=== PATIENT | male | born 1950 | race Caucasian/White ===

== ENCOUNTER 2020-11-21 07:39 | Inpatient (IN) | payer OTHER ==
[~2020-11-21] VITALS: Ht 175.3 cm; Wt 58.5 kg
[2020-11-21] VITALS (9 sets, daily range): BP systolic 99–128; BP diastolic 47–73
[~2020-11-21 07:39] MED LIST: ASPIRIN325 PO; HYDROCODONE-AP1 EAC6 PO; LEVAQUIN 750 M750 MG PO; PERCOCET 5-3251 EACH PO; PREDNISONE50 MG PO; VALIUM5 MG PO
[2020-11-21] MEDS ORDERED: IBUPROFEN200 M1 PO (07:49)
[2020-11-21 08:39] LABS: HEMATOCRIT 54.1 % (42.0-52.0); HEMOGLOBIN 18.1 gm/dL (14.0-18.0); MCH 30.6 pg (26.0-34.0); MCHC 33.5 g/dL (28.0-37.0); MCV 91.4 fL (80.0-100.0); MPV 10.2 fl. (7.2-11.1); NUCLEATED RBCS 0 /100WBC; PLATELET COUNT* 228 thou/uL (150-400); RBC 5.92 mil/uL (4.50-6.00); RDW-CV 15.1 % (10.5-14.5); WBC 24.5 thou/uL (4.0-11.0)
[2020-11-21 08:52] LABS: CREATININE 3.9 mg/dL (0.6-1.3); POTASSIUM 4.4 mmol/L (3.5-5.1)
[2020-11-21 09:02] LABS: MAGNESIUM 3.1 mg/dL (1.8-2.4); TOTAL BILIRUBIN 1.7 mg/dL (<0.1-1.0); TOTAL PROTEIN 7.8 g/dL (6.4-8.2)
[2020-11-21 09:33] LABS: ALBUMIN 3.3 g/dL (3.4-5.0)
[2020-11-21 09:43] LABS: ABSOLUTE LYMPHOCYTES 0.7 thou/uL (0.8-5.3); ABSOLUTE NEUTROPHILS 23.8 thou/uL (1.6-8.1); ATYPICAL LYMPHS 2 %; METAMYELOCYTES 1 %; PLATELET ESTIMATE ADEQUATE
[2020-11-21 11:03] LABS: BE -9.3 mmol/L (-2 to +3); PCO2 30.7 mmHg (35.0-45.0); pH 7.318 (7.340-7.450)
[2020-11-21 11:05] LABS: PO2 128.8 mmHg (75.0-100.0)
--- NOTE | 2020-11-21 14:29 | CON ---
[address] [address] CONSULTATION Name: CERVANTESDOUGIE Lakhwinder Room: [address] IN M.R.#: [id number] Admission: 11/21/20 Attend Phys: Enma Reynaga MD Discharge: Date of : 50 Report #: [id number] THIS REPORT FOR: cc: Brett Rothman Vincent R. DO Pervez, Adeel MD ~ DATE OF CONSULTATION: 11/21/2020 Consult has been requested by Dr. Reynaga. INDICATION FOR CONSULTATION: Acute hypoxemic respiratory failure secondary to COVID-19. HISTORY OF PRESENT ILLNESS: This is a 70-year-old gentleman. There is an extensive history of smoking in the past; however, he has not been diagnosed with a cardiac or respiratory disease in the past. I do not have his previous creatinine available, however, there is no known history of kidney disease as well. The patient now reports that he fell off a tree around 9 days ago and ever since then has had some pain in the right shoulder and right chest. He has been short of breath. He has been coughing. He says previously he did bring up some yellow sputum and still has rattling mucus in his throat. Subjectively, he felt febrile, however, there is no documentation of fever at home. He has had a clear nasal discharge. Currently, the patient is not maintaining O2 saturation on 15 liters oxygen via green high-flow nasal cannula. He was maintaining O2 saturation on a nonrebreather mask. We have placed him on a heated high-flow nasal cannula with 90% FiO2 and 25 liters flow. His O2 saturations have come up to the high 90s. He is also in AFib with RVR and is requiring 10 of diltiazem to control this. He is tachypneic. His respiratory rate is in the mid 30, so far he is compensated with this. He is not febrile at this time. His blood pressure is towards the lower end of the normal range. He says he has had some pain in the right leg as well ever since he had the injury. He does not report any abdominal complaints, in fact does not report any urinary complaints either. REVIEW OF SYSTEMS: For 12 points is negative except as mentioned above. PAST MEDICAL HISTORY: Sciatica, injury to a finger 10 years ago requiring blood transfusions. He says he had a difficult Galeana insertion about 10 years ago. SOCIAL HISTORY: There is an extensive history of smoking. The patient told me that he discontinued smoking 6 years ago. According to the records, he is an active smoker. No known history of heavy alcohol use [place] [address] CONSULTATION Name: DOUGIE CERVANTES Room: [address] IN .R.#: [id number] Admission: 11/21/20 Attend Phys: Enma Reynaga MD Discharge: Date of : 50 Report #: [id number] CURRENT MEDICATIONS: List in [facility] reviewed. HOME MEDICATIONS: Ibuprofen. ALLERGIES: CODEINE. FAMILY HISTORY: No pertinent family history known at this time. PHYSICAL EXAMINATION: GENERAL: He is alert, awake and oriented. VITAL SIGNS: He has a pulse of around 90 with the diltiazem at 10, blood pressure is 120/65. His respiratory rate was 35. He is saturating 98% on 25 liters flow, 90% FiO2. He is afebrile with a temperature of 36.2. HEENT: Head is normocephalic and atraumatic. NECK: Does not show raised JVP, asymmetry, mass or lymph nodes. CHEST: Symmetrical expansion on inspection and palpation. On auscultation, breath sounds are bilaterally equal, but decreased high respiratory rate is noted. There is some rattling sounds from the upper airways heard. HEART: Irregular. There is no murmur. ABDOMEN: Soft and nontender. EXTREMITIES: Lower extremities show no edema and no calf tenderness. SKIN: Dry and intact. NEUROLOGIC: Moves all extremities bilaterally equally and spontaneously with no focal deficit identified. LABORATORY DATA: The patient's chest x-ray is reviewed. There are lobar infiltrates in the right middle lobe extending into the lower lobe. There are infiltrates noted in the left lower lobe as well. This is superimposed on reticular infiltrates bilaterally in all lobes. There is a possibility of a tiny pneumothorax on the right side. Shoulder x-ray does not show fracture. Lab work is in [facility] and this is reviewed. His bandemia at 11%. He has leukocytosis. His hemoglobin is high. He is in acute renal failure, creatinine is 3.9. He has a significant metabolic acidosis which, however, is at least partially compensated. ASSESSMENT AND PLAN: 1. Acute hypoxemic respiratory failure secondary to COVID-19. For now, we will keep him on a heated high-flow nasal cannula. He, despite being tachypneic, appears to be stable on this for now. I am avoiding BiPAP considering possibility of a small pneumothorax on the right side; however, it is possible that he needs a BiPAP. If he worsens, then endotracheal intubation also remains a possibility. The patient does appear to be critically ill. We will watch him very closely in the ICU. [address] [address] CONSULTATION Name: DOUGIE CERVANTES Room: [address] IN [facility]#: [id number] Admission: 11/21/20 Attend Phys: Enma Reynaga MD Discharge: Date of : 50 Report #: [id number] 2. COVID-19. We will continue dexamethasone, I ordered 10 mg b.i.d. both because of severe hypoxemia as well as the fact that I feel that there is a component of chronic obstructive pulmonary disease. We will also go ahead and give him Actemra. He is ordered 1 unit of convalescent plasma, I will be inclined to give another unit later. There are both risks and benefits of giving him remdesivir considering renal failure. It is already ordered. For now, I continued. We will watch renal function and LFTs closely. 3. Pulmonary infiltrates/leukocytosis/bandemia. He has 11% bands. He is hypoxic. His WBCs are up. Therefore, I would be aggressive initially in treating her with antibiotics. Linezolid, cefepime as well as Zithromax are ordered. We will do cultures and serologies. We will cut back antibiotics later if his respiratory status improves. 4. Acute renal failure. We will cautiously go ahead and request a Galeana to be placed. We will do a renal ultrasound. We will continue with IV fluids while watching respiratory status closely. Followup labs are ordered. His baseline creatinine is unknown. 5. Chronic obstructive pulmonary disease exacerbation/polycythemia. His hemoglobin is elevated to 18.1, etiology of this is not established at this time, the most likely reason would be that he has underlying chronic obstructive pulmonary disease previously undiagnosed. 6. Atrial fibrillation with rapid ventricular response. Rapid ventricular response is now under control with diltiazem. Cardiology Service is on the case. May benefit from an echocardiogram. Also, agree with IV heparin. 7. Right leg pains/evaluation for thromboembolic phenomena. The leg pain started when he had injury. For the sake of completion, we will go ahead and do venous Dopplers; however, he is already ordered IV heparin and overall, my suspicion of thromboembolism is not high. 8. Gastrointestinal prophylaxis, on Protonix. 9. Clostridium difficile prophylaxis, Lactinex. 10. Hyperglycemia, insulin sliding scale. The patient is critically ill at this time. Total time spent providing critical care to this patient today exceeds 50 minutes. <ELECTRONICALLY SIGNED> By: Ion Black MD 11/21/20 1429 1214 [id number] Black MD /nt
--- NOTE | 2020-11-21 14:47 | EKG ---
[place] [address] ELECTROCARDIOGRAM REPORT Name: DOUGIE CERVANTES Room: [address] ADM IN .R.#: [id number] Admission: 11/21/20 Attend Phys: Enma Reynaga, Discharge: Date of : 50 Date of Service: 11/21/20 0740 Report #: [id number] THIS REPORT FOR: //name// [facility] ED Test Date: 2020-11-21 Test Time: 07:40:05 Pat Name: DOUGIE CERVANTES Department: Room: [facility] Gender: M Block Tester: CD : 1950 Requested By: Robert Guerrier Order Number: [id number] MD: Michael Meredith Measurements Intervals [place] Rate: 175 P: WI: QRS: 39 QRSD: 97 T: 69 QT: 288 QTc: 492 Interpretive Statements Atrial fibrillation with rapid V-rate Left ventricular hypertrophy Baseline wander in lead(s) III Compared to ECG 04/30/2015 15:43:02 Sinus rhythm no longer present Electronically Signed On 11-21-2020 14:47:02 CDT by Michael Meredith [email or web address] <ELECTRONICALLY SIGNED> By: Michael Meredith MD, FAC 11/21/20 1447 9 Michael Meredith MD, FAC /EPI
[2020-11-21 14:58] LABS: APTT 29.7 Seconds (25.0-31.3); INR 1.2; PROTIME 12.7 Seconds (9.20-11.50)
[2020-11-21 17:44] LABS: CALCIUM 7.9 mg/dL (8.5-10.1); MAGNESIUM 2.3 mg/dL (1.8-2.4); POTASSIUM 4.1 mmol/L (3.5-5.1)
[2020-11-21 17:46] LABS: CREATININE 2.8 mg/dL (0.6-1.3)
--- NOTE | 2020-11-21 21:05 | NUR ---
RECIEVED PATIENT FROM ED 1130
[2020-11-22] VITALS (23 sets, daily range): BP systolic 93–160; BP diastolic 61–83
[2020-11-22 03:25] LABS: ABSOLUTE LYMPHOCYTES 0.3 thou/uL (0.8-5.3); ABSOLUTE MONOCYTES 0.3 thou/uL (0.0-1.2); ABSOLUTE NEUTROPHILS 15.7 thou/uL (1.6-8.1); HEMATOCRIT 40.5 % (42.0-52.0); LYMPHOCYTES 1.6 %; MCH 30.7 pg (26.0-34.0); MCHC 33.2 g/dL (28.0-37.0); MCV 92.5 fL (80.0-100.0); MONOCYTES 2.1 %; NUCLEATED RBCS 0 /100WBC; PLATELET COUNT* 183 thou/uL (150-400); POLYS 96.3 %; RBC 4.38 mil/uL (4.50-6.00); RDW-CV 14.9 % (10.5-14.5); WBC 16.3 thou/uL (4.0-11.0)
[2020-11-22 03:29] LABS: HEMOGLOBIN 13.5 gm/dL (14.0-18.0)
[2020-11-22 03:47] LABS: ALBUMIN 1.6 g/dL (3.4-5.0); CALCIUM 7.7 mg/dL (8.5-10.1); CREATININE 2.2 mg/dL (0.6-1.3); TOTAL BILIRUBIN 0.8 mg/dL (<0.1-1.0)
--- NOTE | 2020-11-22 13:28 | 2DMMODE ---
[place] [address] 2 D/M-MODE ECHOCARDIOGRAM Name: DOUGIE CERVANTES Room: [address] IN .R.#: [id number] Admission: 11/21/20 Attend Phys: Enma Reynaga, Discharge: Date of : 50 Date of Service: 11/22/20 1328 Report #: [id number] THIS REPORT FOR: cc: Brett Rothman,Brett Sutton,Richie Giron MD [facility] ~ APPROVED REPORT Study performed: 11/22/2020 09:45:17 EXAM: Comprehensive 2D, Doppler, and color-flow Echocardiogram Patient Location: In-Patient Room #: 003 Status: routine BSA: 1.78 HR: 96 bpm BP: 119/66 mmHg Rhythm: Atrial Fibrillation Other Information Study Quality: Good Indications Atrial Fibrillation Dyspnea 2D Dimensions IVSd: 11.32 (7-11mm) LVOT Diam: 20.04 (18-24mm) LVDd: 49.71 mm PWd: 9.22 (7-11mm) Ascending Ao: 31.21 (22-36mm) LVDs: 31.47 (25-40mm) Aortic Root: 30.53 mm Volumes Left Atrial Volume (Systole) LA ESV Index: 44.20 mL/m2 Aortic Valve AoV Peak Cristopher.: 1.01 m/s AO Peak Gr.: 4.08 mmHg LVOT Max P.49 mmHg AO Mean Gr.: 2.42 mmHg LVOT Mean P.26 mmHg LVOT Max V: 0.79 m/s AO V2 VTI: 15.09 cm LVOT Mean V: 0.52 m/s ONIEL (VTI): 2.53 cm2 LVOT V1 VTI: 12.10 [place] [address] 2 D/M-MODE ECHOCARDIOGRAM Name: DOUGIE CERVANTES Room: [address] IN [facility].#: [id number] Admission: 11/21/20 Attend Phys: Enma Reynaga, Discharge: Date of : 50 Date of Service: 11/22/20 1328 Report #: [id number] TDI Medial E' Cristopher.: 0.15 m/s Lateral E' Cristopher.: 0.13 m/s Pulmonary Valve PV Peak Cristopher.: 0.78 m/s PV Peak Gr.: 2.45 mmHg Tricuspid Valve RAP Estimate: 5.00 mmHg TR Peak Gr.: 31.61 mmHg RVSP: 36.00 mmHg PA Pressure: 36.00 mmHg Left Ventricle The left ventricle is normal size. There is normal LV segmental wall motion. There is normal left ventricular wall thickness. Left ventricular systolic function is normal. LVEF is 50-55%. This study is not technically sufficient to allow evaluation of the LV diastolic function due to atrial fibrillation. Right Ventricle The right ventricle is normal size. The right ventricular systolic function is normal. Atria Left atrium is moderately dilated. The right atrium size is normal. Aortic Valve Mild aortic valve sclerosis. No aortic regurgitation is present. There is no aortic valvular stenosis. Mitral Valve The mitral valve is normal in structure. Mild mitral regurgitation. No evidence of mitral valve stenosis. Tricuspid Valve The tricuspid valve is normal in structure. Mild tricuspid regurgitation. Mild pulmonary hypertension. Pulmonic Valve The pulmonary valve is normal in structure. There is no pulmonic valvular regurgitation. Great Vessels The aortic root is normal in size. IVC is [place] [address] 2 D/M-MODE ECHOCARDIOGRAM Name: DOUGIE CERVANTES Room: [address] IN [facility]#: [id number] Admission: 11/21/20 Attend Phys: Enma Reynaga, Discharge: Date of : 50 Date of Service: 11/22/20 1328 Report #: [id number] collapses >50% with inspiration. Pericardium There is no pericardial effusion. <Conclusion> The left ventricle is normal size. There is normal left ventricular wall thickness. Left ventricular systolic function is normal. LVEF is 50-55%. There is normal LV segmental wall motion. Left atrium is moderately dilated. Mild tricuspid regurgitation. Mild pulmonary hypertension. IVC is normal in size and collapses >50% with inspiration. <ELECTRONICALLY SIGNED> By: Richie Calderón MD, FACC 11/22/201327 27 27 Richie Calderón MD, FACC /INF
--- NOTE | 2020-11-22 16:38 | NUR ---
ICU Rounds: Patient currently in COVID isolation and on 20L Heated High Flow at 60%. [place] with [place] 2 grandchildren. 2 steps in enter home or none if going through back door. Patient was independent prior to admit and was able to drive. No hx of DME, O2, bipap/cpap, BHS services, dialysis, infusion therapy, SNF/rehab or HH. PCP on facesheet is listed as Maulik Torres, however states that Brian is her doctor and the patient has not ever been seen by him. Facesheet lists dtr ([facility]urora) as DPOA but states that she doesn't have DPOA but rather she has a living will which should include her being able to make decisions for her. Advised that when she no longer has symptoms of COVID to bring the paperwork up so that it can be placed in the patients chart. verbalized understanding. She also stated that she has no questions at this time. CM to continue to follow
--- NOTE | 2020-11-22 20:15 | NUR ---
I ASSUMED CARE OF THE PATIENT AT 0700. HE IS ALERT AND ORIENTED X4 AND IS UP WITH ASSIST OF 1. BED IS IN THE LOW LOCKED POSITION AND CALL LIGHT IS IN REACH. PATIENT NEEDS ARE MET DURING HOURLY ROUNDING. HE IS UP IN THE CHAIR MOST OF THE DAY, BUT DESATED DURING TRANSITION TO THE CHAIR. I HAVE MENTIONED THE PNEUMOTHORAX TO RT TO AVOID BIPAP IF POSSIBLE. HIS OUTPUT IS SUFFICIENT. CARDIZEM DRIP IS CONTINUOUS. BLOOD GLUCOSE IS MONITORED. ISOLATION IS MAINTAINED. WILL CONTINUE TO MONITOR.
--- NOTE | 2020-11-22 20:27 | NUR ---
ASSESSMENTS WERE THE SAME AT 1200 AND 1600. CHANGES IN NOTES.
[2020-11-22 23:06] LABS: MYCOPLASMA PNEUMONIA IgG 210 U/mL (0-99)
[2020-11-23] VITALS (14 sets, daily range): BP systolic 116–172; BP diastolic 68–100
--- NOTE | 2020-11-23 00:38 | NUR ---
NO CHANGES IN ASSESSMENT FROM 1999.
--- NOTE | 2020-11-23 01:17 | NUR ---
ASSUMED CARE OF PT AT 1900. PT IS ALERT AND ORIENTED. VSS. PERRLA. NO COMPLAINTS OF PAIN. PT IS IN A FIB ON THE TELEMETRY. PT HAS A HERNANDEZ IN PLACE. PT IS ON HEATED HIGH FLOW CANNULA. PT IS SLEEPING COMFORTABLY IN BED. RESPIRATIONS ARE EVEN AND NONLABORED. WILL CONTINUE TO MONITOR PT.
[2020-11-23 02:06] LABS: GLYCOHEMOGLOBIN (HGB A1C) 6.2 % (4.8-5.6)
[2020-11-23 03:46] LABS: ABSOLUTE LYMPHOCYTES 0.3 thou/uL (0.8-5.3); ABSOLUTE MONOCYTES 0.5 thou/uL (0.0-1.2); ABSOLUTE NEUTROPHILS 12.8 thou/uL (1.6-8.1); BASOPHILS 0.1 %; HEMATOCRIT 40.3 % (42.0-52.0); HEMOGLOBIN 13.3 gm/dL (14.0-18.0); LYMPHOCYTES 2.4 %; MCH 30.2 pg (26.0-34.0); MCV 91.4 fL (80.0-100.0); MONOCYTES 3.3 %; MPV 9.8 fl. (7.2-11.1); NUCLEATED RBCS 0 /100WBC; PLATELET COUNT* 188 thou/uL (150-400); POLYS 94.2 %; RBC 4.41 mil/uL (4.50-6.00); RDW-CV 14.8 % (10.5-14.5); WBC 13.5 thou/uL (4.0-11.0)
[2020-11-23 04:05] LABS: ALBUMIN 1.8 g/dL (3.4-5.0); CALCIUM 7.8 mg/dL (8.5-10.1); MAGNESIUM 1.3 mg/dL (1.8-2.4); PHOSPHORUS* 3.3 mg/dL (2.5-4.9); POTASSIUM 4.1 mmol/L (3.5-5.1); TOTAL BILIRUBIN 0.6 mg/dL (<0.1-1.0); TOTAL PROTEIN 5.7 g/dL (6.4-8.2)
[2020-11-23 04:11] LABS: CREATININE 1.2 mg/dL (0.6-1.3)
--- NOTE | 2020-11-23 10:06 | NUR ---
ICU Rounds: Patient remains on 60L/85% FiO2 Hi-flow. Continued abx, remdesevir and steroids. Bipap PRN. Daily CXR scheduled. Per surgery, no plans for chest tube at this time. Nursing updated family on plan of care. Patient to stay through the weekend. CM to continue to follow
[2020-11-23 15:52] LABS: CALCIUM 8.3 mg/dL (8.5-10.1); CREATININE 1.3 mg/dL (0.6-1.3); MAGNESIUM 3.6 mg/dL (1.8-2.4); POTASSIUM 4.1 mmol/L (3.5-5.1)
[2020-11-23 23:06] LABS: MYCOPLASMA PNEUMONIA IgM <770 U/mL (0-769)
[2020-11-24] VITALS (8 sets, daily range): BP systolic 111–141; BP diastolic 56–85
[2020-11-24 04:31] LABS: HEMATOCRIT 42.7 % (42.0-52.0); HEMOGLOBIN 14.1 gm/dL (14.0-18.0); MCH 30.6 pg (26.0-34.0); MCHC 33.1 g/dL (28.0-37.0); MCV 92.5 fL (80.0-100.0); NUCLEATED RBCS 0 /100WBC; PLATELET COUNT* 194 thou/uL (150-400); RBC 4.62 mil/uL (4.50-6.00); RDW-CV 14.8 % (10.5-14.5); WBC 11.1 thou/uL (4.0-11.0)
[2020-11-24 04:44] LABS: ALBUMIN 1.8 g/dL (3.4-5.0); CALCIUM 7.8 mg/dL (8.5-10.1); CREATININE 0.9 mg/dL (0.6-1.3); POTASSIUM 4.4 mmol/L (3.5-5.1); TOTAL PROTEIN 5.7 g/dL (6.4-8.2)
[2020-11-24 06:28] LABS: ABSOLUTE LYMPHOCYTES 0.7 thou/uL (0.8-5.3); ABSOLUTE MONOCYTES 0.4 thou/uL (0.0-1.2)
[2020-11-24 06:31] LABS: PLATELET ESTIMATE ADEQUATE
[2020-11-25 00:16] VITALS: BP 105/60
--- NOTE | 2020-11-25 00:31 | NUR ---
AFTER PT HAD XOPENEX TREATMENT HR WAS VERY TACHY IN 120-145 RANGE. IT WAS NOT CONTROLLED, PT STATED HE JUST FELT SHAKY FROM TREATMENT AND HAD NO CHEST PAIN, SOA OR FEELING DIZZY. METOPROLOL WAS GIVEN IV PUSH WITH GOOD RESULTS, PT HR WAS SOON 90-100s
--- NOTE | 2020-11-25 05:38 | NUR ---
PT AO X4 LYING IN CHAIR RECLINED BACK WITH FEET ELEVATED AT TIME OF ASSESSMENT, PT DENIES PAIN AT THIS TIME, HE COMPLAINS OF BEING COLD AND WARM BLANKETS WERE PROVIDED AT THIS TIME. PT REPORTS COUGH WITH BROWN PHLEGM PRODUCTION AT TIMES, HE DENIES SOA AND IS ON 10L HFNC AND IS IN NO ACUTE DISTRESS. PT VSS, TELE IS AFIB, HE IS ON ELIQUIS. PT HAS HERNANDEZ FOR ICU ACCURATE I/O AND HAS CLEAR ALTAGRACIA URINE IN ADEQUATE AMOUNTS. HE HOPING TO HAVE THIS REMOVED AND REQUESTING TO SHOWER TODAY. PT HAD ONE EPISODE OF TACHYCARDIA AFTER XOPENEX TREATMENT AND WAS GIVEN IV METOPROLOL THAT BROUGHT HR DOWN FROM 120-140s TO THE 90-100 RANGE. PT DENIED AND HEART FLUTTERING,PAIN, OR SOA. AT ONE POINT PTs SAT DID DROP BELOW 88% AND I WENT TO BEDSIDE TO EVALUATE, PT WAS HELPED TO BED AND PUT IN FOWLERS POSITION AND THIS HELPED SATS TO ACHIEVE 100% AT ONE POINT. MEDS PER EMAR WITHOUT PROBLEM, CALL LIGHT IN REACH FOR PT SAFETY.
[2020-11-25 08:27] VITALS: BP 136/85
[2020-11-25 08:29] LABS: ABSOLUTE LYMPHOCYTES 0.4 thou/uL (0.8-5.3); ABSOLUTE MONOCYTES 0.5 thou/uL (0.0-1.2); ABSOLUTE NEUTROPHILS 10.4 thou/uL (1.6-8.1); BASOPHILS 0.1 %; HEMATOCRIT 43.5 % (42.0-52.0); HEMOGLOBIN 14.3 gm/dL (14.0-18.0); LYMPHOCYTES 3.4 %; MCH 30.3 pg (26.0-34.0); MPV 9.6 fl. (7.2-11.1); NUCLEATED RBCS 0 /100WBC; PLATELET COUNT* 200 thou/uL (150-400); POLYS 92.5 %; RBC 4.73 mil/uL (4.50-6.00); RDW-CV 14.4 % (10.5-14.5); WBC 11.2 thou/uL (4.0-11.0)
[2020-11-25 08:47] LABS: CALCIUM 7.7 mg/dL (8.5-10.1); MAGNESIUM 1.4 mg/dL (1.8-2.4); PHOSPHORUS* 3.4 mg/dL (2.5-4.9); POTASSIUM 4.6 mmol/L (3.5-5.1); TOTAL BILIRUBIN 1.2 mg/dL (<0.1-1.0); TOTAL PROTEIN 5.8 g/dL (6.4-8.2)
[2020-11-25 11:50] VITALS: BP 122/68
[2020-11-25 16:25] VITALS: BP 125/83
--- NOTE | 2020-11-25 17:47 | NUR ---
Pt remains in Afib. Rate elevated with activity and with resp txs. Meds adjusted per Dr. Calderón. Received one dose metoprolol IV late this am for HR 120s-140s. O2 @ 15L per [facility] this am, titrated to 10L this shift. SaO2 low to mid 90s. Lissett dc'd at 1630 per pt request. Pt has had 4 soft BMs today. Poor appetite today. Reports he feels "pretty good." Up in chair this morning and afternoon. VSS. Will continue to monitor.
[2020-11-26] VITALS: BP 123/77
[2020-11-26 04:00] VITALS: BP 134/76
[2020-11-26 04:35] LABS: ABSOLUTE LYMPHOCYTES 0.4 thou/uL (0.8-5.3); ABSOLUTE MONOCYTES 0.3 thou/uL (0.0-1.2); ABSOLUTE NEUTROPHILS 10.8 thou/uL (1.6-8.1); BASOPHILS 0.1 %; HEMATOCRIT 43.6 % (42.0-52.0); HEMOGLOBIN 14.2 gm/dL (14.0-18.0); LYMPHOCYTES 3.5 %; MCHC 32.5 g/dL (28.0-37.0); MCV 92.4 fL (80.0-100.0); MPV 9.9 fl. (7.2-11.1); NUCLEATED RBCS 0 /100WBC; PLATELET COUNT* 198 thou/uL (150-400); POLYS 93.4 %; RBC 4.72 mil/uL (4.50-6.00); RDW-CV 14.6 % (10.5-14.5); WBC 11.6 thou/uL (4.0-11.0)
[2020-11-26 04:48] LABS: CALCIUM 7.6 mg/dL (8.5-10.1); CREATININE 0.9 mg/dL (0.6-1.3); MAGNESIUM 1.6 mg/dL (1.8-2.4); PHOSPHORUS* 3.3 mg/dL (2.5-4.9); POTASSIUM 4.6 mmol/L (3.5-5.1); TOTAL BILIRUBIN 1.1 mg/dL (<0.1-1.0); TOTAL PROTEIN 5.1 g/dL (6.4-8.2)
--- NOTE | 2020-11-26 06:08 | NUR ---
PT AO X4 AND VERY FATIGUED THIS PM, HE DID NOT ENGAGE IN CONVERSATION THIS PM AND WAS SLEEPING OFF AND ON. VSS, I ENCOURAGED PT TO EAT MEALS WITH PROTEIN FOR OPTIMUM ENERGY AND HEALING. HE STATED HE ONLY ATE ICE CREAM YESTERDAY. A MENU WAS PROVIDED FOR HIM TO CALL HIS MEALS TO KITCHEN IN HOPES HE WOULD CHOOSE ITEMS HE WOULD EAT. CALL LIGHT IN REACH FOR PT SAFETY
[2020-11-26 08:46] VITALS: BP 143/78
--- NOTE | 2020-11-26 14:23 | NUR ---
Covid positive. Anticipate dc in a few days. On 10L, continue to wean. Pneumothorax.
--- NOTE | 2020-11-26 16:09 | NUR ---
BRANNON Dixon who has had pt prior to this date alerted this RN pt is "different" than prior. Stated he seems mentally "off," that he appears more confused today aand not as mentally sharp. Todays shift is this RNs first encounter with pt. This RN reassessed pt. No acute changes since beginning of shift assessment. Dr Rodriguez notified of this. Stated Dr Black verbalized to him that pt appears better today. No new orders at this time.
[2020-11-26 16:19] VITALS: BP 113/64
--- NOTE | 2020-11-26 17:59 | NUR ---
NO ACUTE EVENTS THIS SHIFT. PT IS A&OX4, HOWEVER FORGETFUL. 10L VIA HFNC. A FIB ON TELE, RATE CONTROLLED. PT GETS UP SBA TO BSC. PLAN WEAN O2 ABLE.
[2020-11-26 20:15] VITALS: BP 126/64
[2020-11-26 23:32] VITALS: BP 120/77
[2020-11-27 03:26] VITALS: BP 102/63
[2020-11-27 04:25] LABS: HEMATOCRIT 46.3 % (42.0-52.0); HEMOGLOBIN 15.3 gm/dL (14.0-18.0); MCH 30.4 pg (26.0-34.0); MCV 92.2 fL (80.0-100.0); MPV 9.9 fl. (7.2-11.1); NUCLEATED RBCS 0 /100WBC; RBC 5.03 mil/uL (4.50-6.00); RDW-CV 14.2 % (10.5-14.5); WBC 12.5 thou/uL (4.0-11.0)
[2020-11-27 04:29] LABS: ALBUMIN 3.1 g/dL (3.4-5.0); CALCIUM 8.4 mg/dL (8.5-10.1); CREATININE 1.1 mg/dL (0.6-1.3); MAGNESIUM 1.9 mg/dL (1.8-2.4); POTASSIUM 4.7 mmol/L (3.5-5.1); TOTAL BILIRUBIN 1.8 mg/dL (<0.1-1.0); TOTAL PROTEIN 6.4 g/dL (6.4-8.2)
[2020-11-27 04:39] LABS: PLATELET COUNT* 282 thou/uL (150-400)
--- NOTE | 2020-11-27 05:24 | NUR ---
PT AO X4 BUT SOMEWHAT DISTRACTED TODAY. PT IS SITTING IN BED PLAYING WITH CELLPHONE AND DOES NOT ENGAGE IN CONVERSATION. HE HAD SEVERAL BEHAVIOUS THAT WERE UNLIKE HIMSELF AND HE IS NOT MAKING EYE CONTACT. HE ANSWERS ALL ORIENTATION QUESTIONS APPROPRIATELY BUT DOES HAVE A VISIBLE TREMOR IN HANDS. PT HAS NOT BEEN EATING AND ONLY DRINKS PEPSI THROUGHOUT THE DAY. URINE IS YELLOW AND CLEAR, PT HAVING SOME LOOSE STOOLS THAT ARE VERY DARK BROWN. LUNGS CTA/DIM WITH NON PRODUCTIVE COUGH. TELEMETRY SHOWS AFIB RATE CONTROLLED AND PT IS ON 10L HFNC. PT WAS NOT SLEEPING AND GOT UP AND AMBULATED TO THE TOILET TO VOID AND WAS VISIBLY OUT OF BREATH AND WALKED BACK TO BED. I SPOKE WITH DAUGHTER THINKING MAYBE PT HAD UNDER REPORTED ETOH USE AND SHE STATES THAT HE DOES DRINK BOURBON IN HIS PEPSI EVERYDAY BUT THE AMOUNT IS NOT KNOWN. SHE WAS GOING TO COORDINATE WITH HER FAMILY TO BRING IN MEALS THAT HE WOULD EAT TO HELP WITH HIS NUTRITION. PT BED ALARM ON AND CALL LIGHT IN REACH FOR PT SAFETY
[2020-11-27 07:02] LABS: ABSOLUTE LYMPHOCYTES 0.9 thou/uL (0.8-5.3); ABSOLUTE MONOCYTES 0.3 thou/uL (0.0-1.2); ABSOLUTE NEUTROPHILS 11.4 thou/uL (1.6-8.1); PLATELET ESTIMATE ADEQUATE
[2020-11-27 08:20] VITALS: BP 140/92
--- NOTE | 2020-11-27 12:24 | NUR ---
Covid positive. Down to 8L. Confused now. Pt may need ARU vs SNF [place] pending mentation. Therapies to evaluate.
[2020-11-27 13:33] VITALS: BP 124/66
--- NOTE | 2020-11-27 14:11 | NUR ---
Nutrition: Spoke with pt's RN today. Pt has poor appetite. He did drink an Ensure with lunch. RD will order Glucerna shake for all lunches to encourage better po intake. Pt with COVID. Wt: 132#. Alb 3.1, prealb 28, BG 170-111. CHO controlled diet is ordered. Inadequate oral intake R/T not feeling well AEB RN report. Glucerna shakes daily to encourage better po intake. Mild risk.
--- NOTE | 2020-11-27 17:51 | NUR ---
Pt fidgety for much of shift until around 1530. Pt had been up in recliner since before shift began, and had been fumbling with his flip phone, adjusting his blankets and linen underneath him, and other repetitive behaviors. Pt answered most questions accurately, but was vague with open-ended questions. HR 100s-130s, but O2 sats mid to upper 90s even with activity. Medications were adjusted per cardiology, and HR has been controlled snice late this afternoon. Pt has been in bed since this afternoon and sleeping, though awakened for CT scan, medications, supper, etc. 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 Pt has had poor intake thus far, but did have an Ensure and ice cream milkshake for lunch. For supper, pt's dtr dropped off a ham & cheese sandwich from , and pt gleefully ate it. Pt currently asleep. VSS. Will continue to monitor.
[2020-11-27 20:04] VITALS: BP 113/62
[2020-11-27 23:46] VITALS: BP 105/66
--- NOTE | 2020-11-28 03:44 | NUR ---
ASSUMED CARE OF PT AT 1900. PT IS ALERT AND ORIENTED. VSS. PERRLA. NO COMPLAINTS OF PAIN. PT IS ON 4 LITERS O2. PT IS IN A FIB ON THE TELEMETRY. PT IS RESTING COMFORTABLY IN BED. RESPIRATIONS ARE EVEN AND NONLABORED. WILL CONTINUE TO MONITOR PT.
[2020-11-28 04:00] VITALS: BP 114/69
[2020-11-28 05:19] LABS: ABSOLUTE LYMPHOCYTES 0.4 thou/uL (0.8-5.3); ABSOLUTE MONOCYTES 0.3 thou/uL (0.0-1.2); ABSOLUTE NEUTROPHILS 9.4 thou/uL (1.6-8.1); BASOPHILS 0.3 %; HEMATOCRIT 45.9 % (42.0-52.0); HEMOGLOBIN 15.1 gm/dL (14.0-18.0); LYMPHOCYTES 4.4 %; MCH 30.3 pg (26.0-34.0); MCHC 32.9 g/dL (28.0-37.0); MCV 92.1 fL (80.0-100.0); MONOCYTES 2.6 %; MPV 9.5 fl. (7.2-11.1); NUCLEATED RBCS 0 /100WBC; POLYS 92.7 %; RBC 4.98 mil/uL (4.50-6.00); RDW-CV 14.7 % (10.5-14.5); WBC 10.1 thou/uL (4.0-11.0)
[2020-11-28 05:20] LABS: PLATELET COUNT* 207 thou/uL (150-400)
[2020-11-28 05:39] LABS: ALBUMIN 2.7 g/dL (3.4-5.0); CALCIUM 8.3 mg/dL (8.5-10.1); CREATININE 1.1 mg/dL (0.6-1.3); POTASSIUM 4.7 mmol/L (3.5-5.1); TOTAL BILIRUBIN 1.5 mg/dL (<0.1-1.0); TOTAL PROTEIN 5.8 g/dL (6.4-8.2)
[2020-11-28 08:44] VITALS: BP 91/51
[2020-11-28 12:00] VITALS: BP 125/72
--- NOTE | 2020-11-28 14:35 | NUR ---
Covid positive. Down to 4L, continue to wean. Ex ox at dc
[2020-11-28 16:00] VITALS: BP 125/65
--- NOTE | 2020-11-28 18:05 | NUR ---
PATIENT ALERT ORIENTED X4 , VERY CALM AND COOPERATIVE , CONTINUE ON SUPPLEMEMT OXYGEN 2L/NC . PATIENT WITH NO COMPLAIN OF PAIN OR DISCOMFORT . HAD X2 BOWEL MOVEMENT . NO ISSUE VOICED 2L/
--- NOTE | 2020-11-28 23:10 | NUR ---
PATIENT REFUSED TO TAKE INSULIN TONIGHT D/T HIM NOT EATING DINNER. HE JUST DOESN'T HAVE MUCH OF AN APPEPITE TONIGHT. PATIENT RESTING QUIETLY IN ROOM. NURSING TO CONTINUE MONITORING.
[2020-11-29 00:35] VITALS: BP 117/72
[2020-11-29 03:09] VITALS: BP 117/62
[2020-11-29 04:16] LABS: ABSOLUTE LYMPHOCYTES 0.5 thou/uL (0.8-5.3); ABSOLUTE MONOCYTES 0.4 thou/uL (0.0-1.2); ABSOLUTE NEUTROPHILS 7.2 thou/uL (1.6-8.1); BASOPHILS 0.1 %; HEMATOCRIT 45.4 % (42.0-52.0); HEMOGLOBIN 15.2 gm/dL (14.0-18.0); LYMPHOCYTES 6.7 %; MCH 30.9 pg (26.0-34.0); MCHC 33.5 g/dL (28.0-37.0); MCV 92.2 fL (80.0-100.0); MONOCYTES 4.6 %; MPV 9.9 fl. (7.2-11.1); NUCLEATED RBCS 0 /100WBC; PLATELET COUNT* 171 thou/uL (150-400); POLYS 88.6 %; RBC 4.92 mil/uL (4.50-6.00); RDW-CV 14.1 % (10.5-14.5); WBC 8.1 thou/uL (4.0-11.0)
[2020-11-29 04:40] LABS: ALBUMIN 2.5 g/dL (3.4-5.0); CALCIUM 8.1 mg/dL (8.5-10.1); CREATININE 0.8 mg/dL (0.6-1.3); MAGNESIUM 1.8 mg/dL (1.8-2.4); POTASSIUM 4.4 mmol/L (3.5-5.1); TOTAL BILIRUBIN 1.4 mg/dL (<0.1-1.0); TOTAL PROTEIN 5.3 g/dL (6.4-8.2)
--- NOTE | 2020-11-29 07:04 | NUR ---
PATIENT SLEPT WELL THROUGHOUT THE NIGHT. VSS ON 4L 02 VIA NASAL CANNULA. OXYGEN SATURATION IN THE LOW 80'S SO OXYGEN INCREASED TO 4L. PATIENT INSTRUCTED TO USE CALL LIGHT WHEN NEEDING ASSISTANCE. HOURLY ROUNDS MADE. WILL CONTINUE WITH PLAN OF CARE AND NURSING TO MONITOR.
[2020-11-29 12:00] VITALS: BP 109/70
[2020-11-29 15:19] VITALS: BP 114/74
--- NOTE | 2020-11-29 15:22 | NUR ---
Case and plan of care reviewed with physician each weekday during patient's length of stay. Plan is for .. Afib with RVR, persistent tachycardia. Cardiology following. Continue to monitor telemetry and vitals. exercise oximetry before DC unfortunately given how high his HR is wouldnt feel comfortable dc, needs better control.
[2020-11-29] MEDS ORDERED: ELIQUIS5 MG PO (16:00)
[2020-11-29] MEDS ORDERED: DILTIAZEM 24HR180 M1 PO (16:00)
[2020-11-29] MEDS ORDERED: METOPROLOL SUCC25 M1 PO (16:00)
[2020-11-29] MEDS ORDERED: LANOXIN125 MCG PO (16:00)
--- NOTE | 2020-11-29 18:47 | NUR ---
Got up to chair with respiratory therapy and had greatly increased oxygen needs. Has since required less. Currently on 3L NC and maintaining 95%.
[2020-11-29 19:00] VITALS: BP 111/72
[2020-11-30 00:49] VITALS: BP 142/70
[2020-11-30 04:06] VITALS: BP 125/59
[2020-11-30 04:32] LABS: ABSOLUTE LYMPHOCYTES 0.6 thou/uL (0.8-5.3); ABSOLUTE MONOCYTES 0.4 thou/uL (0.0-1.2); ABSOLUTE NEUTROPHILS 6.3 thou/uL (1.6-8.1); BASOPHILS 0.1 %; EOSINOPHILS 0.1 %; HEMATOCRIT 44.5 % (42.0-52.0); HEMOGLOBIN 14.8 gm/dL (14.0-18.0); LYMPHOCYTES 8.5 %; MCH 30.9 pg (26.0-34.0); MCHC 33.2 g/dL (28.0-37.0); MCV 92.9 fL (80.0-100.0); MONOCYTES 5.6 %; MPV 9.7 fl. (7.2-11.1); NUCLEATED RBCS 0 /100WBC; PLATELET COUNT* 166 thou/uL (150-400); POLYS 85.7 %; RBC 4.79 mil/uL (4.50-6.00); RDW-CV 14.1 % (10.5-14.5); WBC 7.4 thou/uL (4.0-11.0)
[2020-11-30 04:50] LABS: CALCIUM 7.8 mg/dL (8.5-10.1); CREATININE 0.9 mg/dL (0.6-1.3); MAGNESIUM 2.1 mg/dL (1.8-2.4); POTASSIUM 4.5 mmol/L (3.5-5.1)
[2020-11-30 12:11] VITALS: BP 117/52
--- NOTE | 2020-11-30 15:48 | NUR ---
Case and plan of care reviewed with physician each weekday during patient's length of stay. Plan is for .. CONTINUED AFIB, 02 AT 4L WITH REST, 11L WITH ACTIVITY COVID
[2020-11-30 15:57] VITALS: BP 97/55
[2020-11-30 20:00] VITALS: BP 114/67
[2020-12-01 00:45] VITALS: BP 131/62
[2020-12-01 04:27] VITALS: BP 108/52
[2020-12-01 08:00] VITALS: BP 101/50
[2020-12-01] MEDS ORDERED: LANOXIN 0.25M0.25 M1 PO (14:15)
[2020-12-01] MEDS ORDERED: DEXAMETHASONE 22 MG PO (14:23)
[2020-12-01] MEDS ORDERED: PEPCID20 MG PO (14:23)
[2020-12-01] MEDS ORDERED: COMBIVENT RESPIM4 GM SPRAY (14:23)
[2020-12-01] MEDS ORDERED: PROAIR HFA8.5 GM INH (14:23)
[2020-12-01] MEDS ORDERED: VITAMIN D325 MC2 PO (14:23)
[2020-12-01] MEDS ORDERED: DILTIAZEM 24HR120 M1 PO (14:23)
[2020-12-01] MEDS ORDERED: VITAMIN C1000 MG PO (14:23)
[2020-12-01 15:40] VITALS: BP 96/63
[2020-12-01 18:54] VITALS: BP 96/63
[2020-12-04] MEDS ORDERED: DEXAMETHASONE 22 MG PO (09:02)
== END 2020-12-01 20:05 | disposition home or self-care (01) | DRG 177 ==
LOC: M.ERS 07:39 → M.ICU 09:09 → M.ORTHSURG 09:09 → M.TBA-ER 09:09 → M.ICU 11:32 → M.ORTHSURG 11-24 07:01
PROVIDERS: Emergency Medicine Emergency Medical Services; Internal Medicine; Internal Medicine Critical Care Medicine; Student in an Organized Health Care Education/Training Program; Surgery; ADMIT Internal Medicine; ATTEND Internal Medicine
DX: U07.1 COVID-19 (principal); J15.6 Pneumonia due to other Gram-negative bacteria; J96.01 Acute respiratory failure with hypoxia; J12.82 Pneumonia due to coronavirus disease 2019; J44.1 Chronic obstructive pulmonary disease with (acute) exacerbation; J93.9 Pneumothorax, unspecified; N17.9 Acute kidney failure, unspecified; E87.2 Acidosis; I48.19 Other persistent atrial fibrillation; J44.0 Chronic obstructive pulmonary disease with (acute) lower respiratory infection; D72.829 Elevated white blood cell count, unspecified; D75.1 Secondary polycythemia; R73.9 Hyperglycemia, unspecified; Z87.891 Personal history of nicotine dependence; Z88.6 Allergy status to analgesic agent

== ENCOUNTER 2020-12-11 11:09 | Emergency (ER) | payer OTHER ==
[~2020-12-11] VITALS: Ht 175.3 cm; Wt 62.1 kg
[~2020-12-11 11:09] MED LIST changes: +COMBIVENT RESPIM4 GM SPRAY; +DEXAMETHASONE 22 MG PO; +DILTIAZEM 24HR120 M1 PO; +DILTIAZEM 24HR180 M1 PO; +ELIQUIS5 MG PO; +IBUPROFEN200 M1 PO; +LANOXIN 0.25M0.25 M1 PO; +LANOXIN125 MCG PO; +METOPROLOL SUCC25 M1 PO; +PEPCID20 MG PO; +PROAIR HFA8.5 GM INH; +VITAMIN C1000 MG PO; +VITAMIN D325 MC2 PO
[2020-12-11 11:44] LABS: HEMATOCRIT 41.4 % (42.0-52.0); HEMOGLOBIN 13.7 gm/dL (14.0-18.0); MCH 30.2 pg (26.0-34.0); MCHC 33.1 g/dL (28.0-37.0); MCV 91.1 fL (80.0-100.0); MPV 8.5 fl. (7.2-11.1); NUCLEATED RBCS 0 /100WBC; PLATELET COUNT* 117 thou/uL (150-400); RBC 4.55 mil/uL (4.50-6.00); RDW-CV 13.6 % (10.5-14.5); WBC 24.3 thou/uL (4.0-11.0)
[2020-12-11 11:53] LABS: CALCIUM 8.9 mg/dL (8.5-10.1); CREATININE 0.7 mg/dL (0.6-1.3); POTASSIUM 4.3 mmol/L (3.5-5.1)
[2020-12-11 12:03] LABS: ALBUMIN 2.4 g/dL (3.4-5.0); TOTAL BILIRUBIN 0.8 mg/dL (<0.1-1.0); TOTAL PROTEIN 7.1 g/dL (6.4-8.2)
[2020-12-11 12:38] LABS: ABSOLUTE LYMPHOCYTES 0.7 thou/uL (0.8-5.3); ABSOLUTE NEUTROPHILS 23.6 thou/uL (1.6-8.1); ANISOCYTOSIS 1+; PLATELET ESTIMATE DECREASED; POIKILOCYTOSIS 1+
--- NOTE | 2020-12-11 15:03 | EKG ---
[place] [address] ELECTROCARDIOGRAM REPORT Name: DOUGIE CERVANTES Room: [facility]#: [id number] Admission: 12/11/20 Attend Phys: Discharge: Date of : 50 Date of Service: 12/11/20 1128 Report #: [id number] THIS REPORT FOR: //name// [facility] ED Test Date: 2020-12-11 Test Time: 11:28:17 Pat Name: DOUGIE CERVANTES Department: Room: Gender: Sales Hunter: [facility] : 1950 Requested By: Colby Montalvo Order Number: [id number] MD: Dougie Verde Measurements Intervals [place] Rate: 64 P: 35 ND: 118 QRS: 10 QRSD: 104 T: 65 QT: 438 QTc: 452 Interpretive Statements Sinus rhythm Borderline short ND interval Left ventricular hypertrophy Compared to ECG 11/21/2020 07:40:05 Atrial fibrillation no longer present Electronically Signed On 12-11-2020 15:02:48 CDT by Dougie Verde [email or web address] <ELECTRONICALLY SIGNED> By: Dougie Verde MD, JONO 12/11/20 1502 1128 1128 Dougie Verde MD, JONO /EPI
[2020-12-11 15:56] VITALS: BP 121/65
== END 2020-12-11 15:50 | disposition short-term general hospital (02) ==
LOC: M.ERS 11:09
PROVIDERS: Family Medicine
DX: J96.90 Respiratory failure, unspecified, unspecified whether with hypoxia or hypercapnia (principal); Z20.822 Contact with and (suspected) exposure to COVID-19; J18.9 Pneumonia, unspecified organism; I48.91 Unspecified atrial fibrillation; F17.210 Nicotine dependence, cigarettes, uncomplicated; Z79.899 Other long term (current) drug therapy; Z88.5 Allergy status to narcotic agent